=== PATIENT | male | born 1970 | race Caucasian/White ===

== ENCOUNTER 2017-03-24 13:05 | Emergency (ER) | payer OTHER ==
[~2017-03-24] VITALS: Ht 175.3 cm; Wt 93.5 kg
[2017-03-24 13:11] VITALS: Ht 175.3 cm; Wt 93.5 kg
[2017-03-24] MEDS ORDERED: KETOROLAC 30 MG INJ IM STA (14:15)
--- NOTE | 2017-03-24 14:32 | ERD ---
ER Documentation Chief Complaint Chief Complaint LT KNEE PIAN S/P FALL X 1 WEEK AGO HPI This is a 46-year-old male presenting to [facility] with left knee pain status post fall 1 week ago. Patient states he went hiking and tripped and fell on a rock about 1 week ago. Patient states since then he has had left knee , left ankle and left foot pain with left knee swelling. Patient also has small laceration to left patella with some surrounding erythema. Denies any drainage, bleeding or warmth. States he had tactile fevers yesterday. Patient reports not taking any medications at home for pain or fever. ROS All systems reviewed and are negative except as per history of present illness. Medications Home Meds Active Scripts Ibuprofen* (Motrin*) 400 Mg Tab, 400 MG PO Q6, #30 TAB Prov:BRYSON DAY NP 03/24/17 Mupirocin* (Bactroban*) 2% -22 Gram Oint...g., 1 APPLIC TOP BID for 7 Days, EA Prov:BRYSON DAY NP 03/24/17 Cephalexin* (Keflex*) 500 Mg Capsule, 500 MG PO QID for 5 Days, CAP Prov:BRYSON DAY NP 03/24/17 Allergies Allergies: Coded Allergies: No Known Allergy (Unverified , 10/23/14) PMhx/Soc Hx Alcohol Use: No Hx Substance Use: No Physical Exam Vitals Vital Signs Date Time Temp Pulse Resp B/P Pulse Ox O2 Delivery O2 Flow Rate FiO2 03/24/17 16:22 77 18 119/69 99 Room Air 03/24/17 13:11 98.1 85 18 133/76 98 Physical Exam Const: No acute distress, alert Head: Atraumatic Eyes: Normal Conjunctiva ENT: Normal External Ears, Nose and Mouth. Neck: Full range of motion..~ No meningismus. Resp: Clear to auscultation bilaterally. No wheezing, rhonchi or crackles. Cardio: Regular rate and rhythm, no murmurs Abd: Soft, non tender, non distended. Normal bowel sounds Skin: Small 1 cm linear laceration to left patella with mild surrounding erythema. No drainage or bleeding. Back: No midline or flank tenderness Ext: Pedal pulses are palpable bilaterally. Capillary refill less than 3 seconds. Sensation fully intact. No calf tenderness. No calf swelling. Full extension and flexion of bilateral knees. There is moderate amount of swelling distal to patella. Neur: Awake and alert Psych: Normal Mood and Affect Results 24 hrs Current Medications Medications (Trade) Dose Ordered Sig/Mahsa Route PRN Reason Start Time Stop Time Status Last Admin Dose Admin Ketorolac Tromethamine (Toradol) 30 mg ONCE STAT IM 03/24/17 14:15 03/24/17 14:17 DC 03/24/17 15:06 Procedures/MDM Patient: BLANCA CHAU : 1970 Age: 46 Sex: M MR #: [id number] DOS: 03/24/171414 Ordering MD: BRYSON BENTLEY NP Location: [facility] Room/Bed: PROCEDURE: Left knee x-ray CLINICAL INDICATION: Left knee pain after a fall last week. TECHNIQUE: AP, lateral and oblique views of the knee were obtained. COMPARISON: None FINDINGS: There is soft tissue swelling ventral to the patellar ligament and patella. The bony elements are normal. No joint space effusion is identified. The joint spaces are normal. IMPRESSION: 1. There is diffuse soft tissue swelling ventral to the patella and patellar ligament. 2. No acute bony fracture dislocation is identified. Patient: BLANCA CHAU : 1970 Age: 46 Sex: M MR #: [id number] DOS: 03/24/171414 Ordering MD: BRYSON BENTLEY NP Location: [facility] Room/Bed: PROCEDURE: XR Left Foot. CLINICAL INDICATION: left ankle pain after fall last week TECHNIQUE: AP and lateral views of the left foot was obtained. The images were reviewed on a PACS workstation. COMPARISON: None. FINDINGS: The soft tissues are unremarkable except for vascular calcifications in the proximal dorsalis pedis artery. bony elements are normal. The joint spaces are normal. IMPRESSION: 1. 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 2. Otherwise, unremarkable left left foot. Patient: BLANCA CHAU : 1970 Age: 46 Sex: M MR #: [id number] DOS: 03/24/171414 Ordering MD: BRYSON BENTLEY NP Location: [facility] Room/Bed: PROCEDURE: XR Left Ankle. CLINICAL INDICATION: Pain after a fall last week. TECHNIQUE: AP, oblique and lateral views of the left ankle were performed. COMPARISON: None. FINDINGS: There are vascular calcifications in the dorsalis pedis artery. The bony elements appear intact. The ankle mortise is well maintained. IMPRESSION: 1. Atherosclerotic vascular calcifications are noted in the proximal dorsalis pedis artery. 2. No acute bony fracture or dislocation is identified. MDM: This is a 46-year-old male presenting to emergency department with left knee, left ankle and left foot pain status post fall 1 week ago. X-rays ordered. Patient given Toradol 30 mg IM. X-ray left knee reviewed by radiologist as There is diffuse soft tissue swelling ventral to the patella and patellar ligament. No acute bony fracture dislocation is identified. X-ray left ankle reviewed by radiologist as Atherosclerotic vascular calcifications are noted in the proximal dorsalis pedis artery. No acute bony fracture or dislocation is identified. 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 Otherwise , unremarkable left left foot. Consulted with Dr. Heath regarding this patient and we agree that patient is appropriate for outpatient management. Low suspicion for acute dislocation or fracture. Low suspicion for osteomyelitis. Patient is appropriate for outpatient management with prescription for Keflex and Mupirocin ointment. Instructed patient to follow up with primary care provider in the next 2-3 days for reassessment and additional management. Return to ED for any new or worsening symptoms. Departure Diagnosis: Primary Impression: Knee injury Condition: Stable BRYSON DAY NP Mar 24, 2017 14:32
--- NOTE | 2017-03-24 15:55 | RADRPT ---
PROCEDURE: Left knee x-ray CLINICAL INDICATION: Left knee pain after a fall last week. TECHNIQUE: AP, lateral and oblique views of the knee were obtained. COMPARISON: None FINDINGS: There is soft tissue swelling ventral to the patellar ligament and patella. The bony elements are no rmal. No joint space effusion is identified. The joint spaces are normal. IMPRESSION: 1. There is diffuse soft tissue swelling ventral to the patella and patellar ligament. 2. No acute bony fracture dislocation is identified. RPTAT:AAJJ Physician Araceli Date Time Electronically viewed and signed by Bernard Love Physician on 03/24/2017 15:55 МАРИНА/
--- NOTE | 2017-03-24 15:56 | RADRPT ---
PROCEDURE: XR Left Ankle. CLINICAL INDICATION: Pain after a fall last week. TECHNIQUE: AP, oblique and lateral views of the left ankle were performed. COMPARISON: None. FINDINGS: There are vascular calcifications in the dorsalis pedis artery. The bony elements appear intact. The ankle mortise is well maintained. IMPRESSION: 1. Atherosclerotic vascular calcifications are noted in the proximal dorsalis pedis artery. 2. No acute bony fracture or dislocation is identified. RPTAT:AAJJ Physician Araceli Date Time Electronically viewed and signed by Bernard Love Physician on 03/24/2017 15:56 /
--- NOTE | 2017-03-24 15:57 | RADRPT ---
PROCEDURE: XR Left Foot. CLINICAL INDICATION: left ankle pain after fall last week TECHNIQUE: AP and lateral views of the left foot was obtained. The images were reviewed on a PACS workstation. COMPARISON: None. FINDINGS: The soft tissues are unremarkable except for vascular calcifications in the proximal dorsalis pedis artery. bony elements are normal. The joint spaces are normal. IMPRESSION: 1. 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 2. Otherwise, unremarkable left left foot. RPTAT:AAJJ Bernard Love Physician Date Time Electronically viewed and signed by Bernard Love Physician on 03/24/2017 15:57 МАРИНА/
[2017-03-24] MEDS ORDERED: MUPI22OI2 TOP (16:06)
[2017-03-24] MEDS ORDERED: CEPH-443 PO (16:06)
[2017-03-24] MEDS ORDERED: IBUP400T22 PO (16:07)
[2017-03-24 16:22] VITALS: BP 119/69; PULSE 77; RESP 18
== END 2017-03-24 16:23 | disposition home or self-care (01) ==
LOC: FTE 13:05
DX: S89.92XA Unspecified injury of left lower leg, initial encounter (principal); W01.0XXA Fall on same level from slipping, tripping and stumbling without subsequent striking against object, initial encounter; Y92.9 Unspecified place or not applicable
CPT/HCPCS: 73562; 73610; 73630; 96372; J1885; Z7502

== ENCOUNTER 2018-03-11 08:59 | Emergency (ER) | END 2018-03-11 11:30 | disposition home or self-care (01) ==

== ENCOUNTER 2018-03-11 14:00 | Emergency (ER) | END 2018-03-11 16:16 | disposition left against medical advice (07) ==